=== PATIENT | male | born 1945 | race Caucasian/White ===

== ENCOUNTER 2019-12-02 02:10 | Emergency (ER) | payer MEDICARE, OTHER ==
--- NOTE | 2019-12-02 02:37 | EDM.PDOC ---
ED HPI GENERAL MEDICAL PROBLEM - General Chief Complaint: Laceration Stated Complaint: Laceration Time Seen by Provider: 12/02/19 02:18 Source of Information: Reports: Patient History Limitations: Reports: No Limitations - History of Present Illness INITIAL COMMENTS - FREE TEXT/NARRATIVE: Pt cut corner of top lip while shaving Is on ASA and cant stop the bleeding Onset: Today, Sudden Location: Reports: Face - Related Data Allergies Allergy/AdvReac Type Severity Reaction Status Date / Time No Known Allergies Allergy Verified 11/27/19 13:54 Home Meds: Home Meds Aspirin [Aspirin EC] 81 mg PO DAILY 12/02/19 [History] Cholecalciferol (Vitamin D3) [Vitamin D3] 2,000 unit PO DAILY 12/02/19 [History] Finasteride [Proscar] 5 mg PO DAILY 12/02/19 [History] Potassium Gluconate [Potassium] 600 mg PO DAILY 12/02/19 [History] Simvastatin 10 mg PO BEDTIME 12/02/19 [History] Social & Family History - Tobacco Use Tobacco Use Status *Q: Never Tobacco User Second Hand Smoke Exposure: No - Caffeine Use Caffeine Use: Reports: Coffee - Recreational Drug Use Recreational Drug Use: No ED ROS GENERAL - Review of Systems Review Of Systems: See Below Skin: Reports: Other (Cut on upper lip) ED EXAM, SKIN/RASH Exam: See Below Skin: Other (corner of upper lip with tangential superficial) Course - Vital Signs Last Recorded V/S: Last Vital Signs Temp 98.4 F 12/02/19 02:14 Pulse 78 12/02/19 02:14 Resp 14 12/02/19 02:14 BP 155/75 H 12/02/19 02:14 Pulse Ox 98 12/02/19 02:14 - Re-Assessments/Exams Free Text/Narrative Re-Assessment/Exam: 12/02/19 02:36 Surgi-talita placed and pressure held Bleeding stopped Departure - Departure Time of Disposition: 02:40 Disposition: Home, Self-Care 01 Clinical Impression: Lip laceration Qualifiers: Encounter type: initial encounter Qualified Code(s): S01.511A - Laceration without foreign body of lip, initial encounter - Discharge Information *PRESCRIPTION DRUG MONITORING PROGRAM REVIEWED*: Not Applicable *COPY OF PRESCRIPTION DRUG MONITORING REPORT IN PATIENT JASSON: Not Applicable Instructions: Laceration Care, Adult Referrals: Rajendra Escalante PA [Primary Care Provider] - Additional Instructions: Keep wound clean Follow up in clinic Sepsis Event Note (ED) - Evaluation Sepsis Screening Result: No Definite Risk - Focused Exam Vital Signs: Vital Signs Temp Pulse Resp BP Pulse Ox 12/02/19 02:14 98.4 F 78 14 155/75 H 98
== END 2019-12-02 02:40 | disposition home or self-care (01) ==
LOC: LL.ED 02:10
DX: S01.511A Laceration without foreign body of lip, initial encounter (principal); Z79.82 Long term (current) use of aspirin; Z79.899 Other long term (current) drug therapy; W27.8XXA Contact with other nonpowered hand tool, initial encounter
CPT/HCPCS: 99282

== ENCOUNTER 2020-01-07 10:02 | Day surgery (SDC) | payer MEDICARE, OTHER ==
[~2020-01-07 10:02] MED LIST: Lactated Ringers 1,000 ML IV SCH; Sodium Chloride 0.9% 10 ML Syringe FLUSH PRN
[2020-01-07] MEDS ORDERED: Midazolam 1 MG/ML 2 ML SDV ONE ×2 (11:09→11:15)
[2020-01-07] MEDS ORDERED: Propofol 200 MG/20 ML SDV ONE ×2 (11:09→11:15)
--- NOTE | 2020-01-07 11:17 | PCM.PN ---
- General Info Date of Service: 01/07/20 - Review of Systems Systems Review Comment:: 74-year-old male referred for colonoscopy. He does have a history of colon polyps. He is also noticed a change in his bowel pattern with slightly more loose stools recently although symptoms have now almost completely resolved with bowel pattern close to normal for him. He is medically stable to proceed today. His recent history and physical is reviewed and no significant changes are noted. I have discussed the proposed colonoscopy with the patient. He agrees to proceed excepting risks. - Patient Data Vitals - Most Recent: Last Vital Signs Temp 98.1 F 01/07/20 10:33 Pulse 52 L 01/07/20 10:33 Resp 16 01/07/20 10:33 BP 131/90 01/07/20 10:33 Pulse Ox 95 01/07/20 10:33 Weight - Most Recent: 77.111 kg Med Orders - Current: Current Medications Lactated Ringer's (Ringers, Lactated) 1,000 mls @ 125 mls/hr IV ASDIRECTED SEAN Last Admin: 01/07/20 10:29 Dose: 125 mls/hr Documented by: Sodium Chloride (Saline Flush) 10 ml FLUSH ASDIRECTED PRN PRN Reason: Keep Vein Open Discontinued Medications Midazolam HCl (Versed 1 Mg/Ml) Confirm Administered Dose 2 mg .ROUTE .STK-MED ONE Stop: 01/07/20 11:10 Propofol (Diprivan 20 Ml) Confirm Administered Dose 400 mg .ROUTE .STK-MED ONE Stop: 01/07/20 11:10 Sepsis Event Note - Focused Exam Vital Signs: Vital Signs Temp Pulse Resp BP Pulse Ox 01/07/20 10:33 98.1 F 52 L 16 131/90 95 - Problem List Review Problem List Initiated/Reviewed/Updated: Yes - My Orders Last 24 Hours: My Active Orders 01/07/20 10:00 Patient Status [ADT] Routine Peripheral IV Care [RC] . DIRECTED Verify Patient Consent Obtain [RC] ASDIRECTED Lactated Ringers [Ringers, Lactated] 1,000 ml IV ASDIRECTED Sodium Chloride 0.9% [Saline Flush] 10 ml FLUSH ASDIRECTED PRN Peripheral IV Insertion Adult [OM.PC] Routine - Assessment Assessment:: History of colon polyps Change in bowel pattern - Plan Plan:: Colonoscopy
--- NOTE | 2020-01-07 11:59 | PCM.OPNOTE ---
- General Post-Op/Procedure Note Date of Surgery/Procedure: 01/07/20 Operative Procedure(s): Colonoscopy with polypectomy Findings: Small sessile polyps Moderate Sigmoid Diverticulosis Pre Op Diagnosis: Change in bowel habits Post-Op Diagnosis: Colon Polyps. Sigmoid Diverticulosis Anesthesia Technique: MAC Primary Surgeon: Mark Juarez Pathology: Colon Polyps EBL in mLs: 0 Complications: None Condition: Good
--- NOTE | 2020-01-07 12:42 | OR ---
Date of Procedure: 01/07/2020 PREOPERATIVE DIAGNOSIS: Change in bowel habits. POSTOPERATIVE DIAGNOSES: Colon polyps, sigmoid diverticulosis. OPERATION PERFORMED: Colonoscopy with polypectomy. INDICATIONS FOR SURGERY: This 74-year-old male has noticed a change in his bowel pattern over the past several months with slightly increased frequency of stools. He is noticing this to be gradually returning to normal. He also has a history of colon polyps. FINDINGS: Two polyps were noted on today's exam, one is a rectal polyp 3 cm from the anal verge and approximately 5 mm in size, the other is a sessile polyp in hepatic flexure of approximately 1 cm in size and sessile in configuration. The patient also has moderate to extensive diverticulosis in the sigmoid region, although this does not appear to be acutely inflamed at this time. The remainder of the colon appears normal. DESCRIPTION OF PROCEDURE: The patient was taken to the operating room, given intravenous sedation, and with him in the left lateral decubitus position, digital rectal exam was performed showing no rectal masses. The Olympus colonoscope was inserted into the rectum and retroflexed examination of the rectal canal was performed. In the rectum, the above-described rectal polyp was identified. This was removed with a cautery snare and retrieved. The scope was then carefully advanced under direct visualization through the colon to the hepatic flexure where the other above-described polyp was identified. This was sessile in configuration, which made it somewhat difficult to remove completely with a snare and so a portion of the polyp was removed with a cautery snare and this will be submitted to pathology for evaluation. The remainder of the polyp is destroyed with cautery using the snare, so this polyp did appear to be completely removed/destroyed. The scope was then advanced to the cecum where the cecal acquisition was confirmed by noting the normal internal cecal anatomy including the appendiceal orifice and the ileocecal valve. The light is also noted to transilluminate the abdominal wall in the right lower quadrant. After examining the cecum, the scope was slowly withdrawn sequentially re-examining the colonic segments until the entire colon and rectum had been fully examined. The scope was removed and the patient was taken from the operating room in satisfactory condition. ESTIMATED BLOOD LOSS: Zero. COMPLICATIONS: None. PROGNOSIS: Good. WILLIE Juarez MD /[id number]
== END 2020-01-07 13:19 | disposition home or self-care (01) ==
LOC: LL.SDS 10:02
PROVIDERS: ATTEND Surgery
DX: K63.5 Polyp of colon (principal); K57.30 Diverticulosis of large intestine without perforation or abscess without bleeding; K62.1 Rectal polyp; Z98.890 Other specified postprocedural states; Z79.899 Other long term (current) drug therapy; Z87.891 Personal history of nicotine dependence; Z01.812 Encounter for preprocedural laboratory examination; Z20.828 Contact with and (suspected) exposure to other viral communicable diseases
CPT/HCPCS: 00811; J2250; J2704; J7120; U0002

== ENCOUNTER 2024-01-30 07:00 | Day surgery (SDC) | payer MEDICARE ==
[~2024-01-30 07:00] MED LIST changes: -Lactated Ringers 1,000 ML IV SCH; +Midazolam 1 MG/ML 2 ML SDV ONE; +Propofol 200 MG/20 ML SDV ONE
[2024-01-30] MEDS: Lactated Ringers 1,000 ML IV SCH (08:21)
== END 2024-01-30 09:45 | disposition home or self-care (01) ==
LOC: LL.SDS 07:00
PROVIDERS: ATTEND Surgery
DX: K57.31 Diverticulosis of large intestine without perforation or abscess with bleeding (principal); K64.8 Other hemorrhoids; E78.5 Hyperlipidemia, unspecified; N40.1 Benign prostatic hyperplasia with lower urinary tract symptoms; K42.9 Umbilical hernia without obstruction or gangrene; D64.9 Anemia, unspecified
CPT/HCPCS: J2250; J2704; J7120